=== PATIENT | male | born 1990 | race Two or more races ===

== ENCOUNTER 2018-06-22 12:24 | Emergency (ER) | payer SELFPAY ==
[~2018-06-22] VITALS: Ht 167.6 cm; Wt 72.7 kg
[2018-06-22] MEDS ORDERED: IBUPROFEN 800 MG TABLET PO ONE (14:00)
[2018-06-22 14:15] VITALS: BP 139/83
== END 2018-06-22 14:22 | disposition home or self-care (01) ==
LOC: EMS 12:25
DX: L02.213 Cutaneous abscess of chest wall (principal); J45.909 Unspecified asthma, uncomplicated; F17.210 Nicotine dependence, cigarettes, uncomplicated
CPT/HCPCS: 99283